=== PATIENT | female | born 1975 | race Caucasian/White ===

== ENCOUNTER 2017-05-31 13:27 | Emergency (ER) | payer OTHER ==
[~2017-05-31] VITALS: Ht 160 cm; Wt 90.5 kg
[2017-05-31] MEDS ORDERED: LEVO100 PO (13:51)
[2017-05-31 15:00] VITALS: BP 132/82
[2017-05-31] MEDS ORDERED: KETOROLAC TROMETHAMINE 60 MG/2 ML VIAL IM ONE (15:00)
[2017-05-31] MEDS ORDERED: METHOCARBAMOL 500 MG TABLET PO ONE (15:00)
== END 2017-05-31 15:29 | disposition home or self-care (01) ==
LOC: EMS 13:29
DX: S46.912A Strain of unspecified muscle, fascia and tendon at shoulder and upper arm level, left arm, initial encounter (principal); E03.9 Hypothyroidism, unspecified; Z90.49 Acquired absence of other specified parts of digestive tract; X58.XXXA Exposure to other specified factors, initial encounter; Y93.89 Activity, other specified; Y92.89 Other specified places as the place of occurrence of the external cause; Y99.8 Other external cause status
CPT/HCPCS: 96372; 99283; J1885